=== PATIENT | female | born 1965 | race Hispanic/Latino ===

== ENCOUNTER 2020-07-08 21:56 | Emergency (ER) | payer OTHER ==
[2020-07-08 23:42] LABS: BASOPHILS % (AUTO) 0.6 % (0.0-5.0); EOSINOPHILS % (AUTO) 1.7 % (0.0-8.0); HEMATOCRIT 41.9 % (36-48); LYMPHOCYTES % (AUTO) 28.2 % (21.0-51.0); MEAN CORPUSCULAR HEMOGLOBIN 27.6 pg (27.0-33.0); MEAN CORPUSCULAR HGB CONC 31.7 g/dL (32.0-36.0); MEAN CORPUSCULAR VOLUME 86.9 fL (79-99); MONOCYTES % (AUTO) 11.4 % (3.0-13.0); NEUTROPHILS % (AUTO) 57.3 % (40.0-77.0); PLATELET COUNT (AUTO) 185 K/uL (130-400); RED BLOOD CELL COUNT(AUTO) 4.82 MIL/uL (4.00-5.50); RED CELL DISTRIBUTION WIDTH 12.6 % (11.0-15.5); WHITE BLOOD COUNT (AUTO) 4.8 K/uL (4.8-10.8)
[2020-07-08 23:52] LABS: CREATININE 0.8 mg/dL (0.5-1.5); POTASSIUM 3.4 mmol/L (3.5-5.1)
[2020-07-09] LABS: ALBUMIN 3.9 g/dL (3.5-5.0); BILIRUBIN,TOTAL 0.4 mg/dL (0.2-1.0); CRP QUANTITATIVE 46.3 mg/L (0.00-9.0); TOTAL PROTEIN, SERUM 7.9 g/dL (6.0-8.3)
[2020-07-09] MEDS ORDERED: DIPHENHYDRAMINE HCL 25 MG CAPSULE ONE (00:26)
[2020-07-09] MEDS ORDERED: CETIRIZINE HCL 5 MG TABLET PO ONE (01:40)
[2020-07-09] MEDS ORDERED: ACYCLOVIR 200 MG CAPSULE ONE (01:42)
== END 2020-07-09 02:21 | disposition home or self-care (01) ==
LOC: EDH 21:56
DX: B01.9 Varicella without complication (principal); E11.9 Type 2 diabetes mellitus without complications; I10 Essential (primary) hypertension; M19.90 Unspecified osteoarthritis, unspecified site; Z90.49 Acquired absence of other specified parts of digestive tract; Z98.890 Other specified postprocedural states
CPT/HCPCS: 36415; 80053; 85025; 86140; 99284; Q0163

== ENCOUNTER 2024-09-18 12:27 | Emergency (ER) | payer OTHER ==
[~2024-09-18] VITALS: Ht 175.3 cm; Wt 111.1 kg
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
[2024-09-18] MEDS: NEOMY SULF/BACITRA/POLYMYXIN B 1 EACH PACKET TP ONE (13:22)
--- NOTE | 2024-09-18 13:22 | NUR ---
WOUNDS TO FACE AND LT KNEE CLEANED AND MEDICATED
--- NOTE | 2024-09-18 14:25 | HMCIMG ---
EXAM: CT Maxillofacial Without IV contrast. CLINICAL HISTORY: TRIPPED AND FELL FACE FORWARD. NASAL AND FOREHEAD PAIN ABRASIONS TECHNIQUE: Axial computed tomography images of the face without intravenous contrast. Sagittal and coronal reformatted images were generated. CONTRAST: None. COMPARISON: None provided. FINDINGS: FACIAL BONES/ORBITS: No acute fracture or aggressive appearing osseous lesion. The mandible is intact. The orbits are normal. No retrobulbar hematoma or mass. The paranasal sinuses appear clear. Mild deviated nasal septum towards left side. SOFT TISSUES: Extracalvarial soft tissue swelling is seen in the right frontal region. Soft tissue swelling is seen in the right periorbital region. No radiopaque foreign body or focal fluid collection seen. Incidental calcification within the right thyroid lobe may be further characterized with dedicated ultrasound imaging. IMPRESSION: 1. No acute osseous injury. 2. Right frontal and periorbital soft tissue swelling. /[place]
--- NOTE | 2024-09-18 14:30 | HMCIMG ---
EXAM: CR left knee, 4 View. CLINICAL HISTORY: LEFT KNEE PAIN WITH A ABRASION STATUS POST TRIP FALL. COMPARISON: None provided. FINDINGS: Patellofemoral compartment predominant mild tricompartmental left knee joint osteoarthritis. Small knee joint effusion. Soft tissues are radiographically within normal limits. IMPRESSION: 1. Mild tricompartmental left knee osteoarthritis, patellofemoral predominant, with small knee joint effusion. 2. No displaced fracture appreciated. /[place]
[2024-09-18] MEDS ORDERED: CEPH500T PO (14:45)
[2024-09-18] MEDS ORDERED: IBUP-2077 PO (14:45)
[2024-09-18 14:49] VITALS: BP 148/74; PULSE 78; RESP 16; TEMP 98.4; O2SAT 99
== END 2024-09-18 14:50 | disposition home or self-care (01) ==
LOC: EDH 12:27
DX: S00.81XA Abrasion of other part of head, initial encounter (principal); S80.02XA Contusion of left knee, initial encounter; E11.9 Type 2 diabetes mellitus without complications; I10 Essential (primary) hypertension; M79.7 Fibromyalgia; Z90.49 Acquired absence of other specified parts of digestive tract; W01.0XXA Fall on same level from slipping, tripping and stumbling without subsequent striking against object, initial encounter; Y93.89 Activity, other specified; Y92.89 Other specified places as the place of occurrence of the external cause; Y99.8 Other external cause status
CPT/HCPCS: 70486; 73562; 90471; 90714; 99285